=== PATIENT | male | born 1980 | race Caucasian/White ===

== ENCOUNTER 2023-12-28 10:28 | Emergency (ER) | payer BC, SELFPAY ==
[2023-12-28 10:32] VITALS: BP 123/87
[2023-12-28 10:58] LABS: % Basophils 0.3 % (0-2); % Eosinophils 0.9 % (0-6); % Immature Granulocytes 1.8 % (0-0.5); % Lymphocytes 35.6 % (20.5-51.1); % Monocytes 8.2 % (1.7-9.3); % Neutrophils 53.2 % (42.2-75.2); Absolute Eosinophils 0.1 10^3/uL (0-0.7); Absolute Immature Granulocytes 0.2 10^3/uL (0-0.05); Absolute Lymphocytes 4.6 10^3/uL (1.2-3.4); Absolute Monocytes 1.1 10^3/uL (0.1-0.6); Absolute Neutrophils 6.9 10^3/uL (1.4-6.5); Hematocrit 46.2 % (39.0-52.0); Hemoglobin 15.5 g/dL (13.0-18.0); Mean Corp Hgb Conc. 33.5 g/dL (33.0-37.0); Mean Corpuscular Volume 80.3 fL (80.0-94.0); Mean Platelet Volume 8.4 fL (7.4-10.4); Nucleated Red Blood Cells % 0 % (-); Platelet Count 256 10^3/uL (130-400); Red Blood Cell Count 5.75 10^6/uL (4.70-6.10); White Blood Cell Count 12.9 10^3/uL (4.8-10.8)
[2023-12-28 11:19] LABS: ALT (SGPT) 30 U/L (0-50); AST (SGOT) 26 U/L (17-59); Albumin 4.5 g/dl (3.5-5.0); Alkaline Phosphatase 48 U/L (38-126); Blood Urea Nitrogen 13 mg/dl (9-20); Calcium 9.5 mg/dl (8.4-10.2); Carbon Dioxide 29 mmol/L (22-30); Chloride 104 mmol/L (98-107); Glucose 84 mg/dl (70-99); Potassium 4.4 mmol/L (3.5-5.1); Sodium 140 mmol/L (135-145); Total Bilirubin 0.9 mg/dl (0.2-1.3); Total Protein 7.4 g/dl (6.3-8.2); eGFR > 60.00
[2023-12-28 11:47] VITALS: BP 118/68
[2023-12-28 11:53] VITALS: BMI 47.0
[2023-12-28 12:00] VITALS: BP 116/75
--- NOTE | 2023-12-28 12:16 | ED.GENMED ---
History of Present Illness
General
Chief Complaint: Heart Rate Problem
Source: patient and spouse
Exam Limitations: none
Time Seen by Provider: 12/28/23 11:45
Nursing documentation reviewed up to this point in time: agreed with
History of Present Illness
History of Present Illness:
43-year-old male presents emergency department due to dizziness and generalized weakness this morning. He notes his INR was 4.4 this week. He denies any chest pain or shortness of breath.
Past History
Past History
ED Past Medical History: GERD, Valvular disease (Congenital bicuspid aortic valve) and Other (Histroy of recurrent DVTs)
ED Past Surgical History: Cardiac (Aortic valvuloplasty with aortic root graft [facility] February 2013)
Social History
Tobacco: Non-smoker
Alcohol: None
Drug: None
Personal:
Living: with family
Employment: Employed
Review of Systems
Review of Systems
Allergies reviewed?: Yes
All Other Systems: Not applicable
Constitutional: Reports no symptoms
EENT: Reports no symptoms
Respiratory: Reports no symptoms; Denies trouble breathing
Cardiac: Reports palpitations; Denies chest pain
ABD/GI: Reports no symptoms
: Reports no symptoms
Musculoskeletal: Reports no symptoms
Skin: Reports no symptoms
Neurological: Reports no symptoms
Endocrine: Reports no symptoms
Hematologic/Lymphatic: Reports bruising
Psychiatric: Reports no symptoms
Phy Exam
Physical Exam
Physical Exam:
Physical Exam
General: no apparent distress, not acutely ill
Neck: supple. no meningeal signs. normal posterior pharynx
Heart: s1/s2 regular rate and rhythm, no murmur. equal radial
pulses.
HEENT: Pupils equal round reactive to light, EOMI
Lungs: no acute respiratory distress. clear bilaterally
Abdomen: normal bowel sounds. not tender. no CVAT
Neuro: alert and oriented. no focal neurological deficits cranial nerves II through XII intact
Skin: no rash, ecchymosis bruising left howell appears several days old
Psychiatric: well kept. interactive and cooperative
Extremities: no edema. no calf tenderness. negative homans. good distal pulses
Course
Orders/Labs/Results
Orders:
Orders
12/28/23 10:36
Electrocardiogram (*1) Urgent
Reason for Study: Chest Pain
EKG- Treatment ONCE
12/28/23 10:46
CMP [Comprehensive Metabolic Panel] Urgent
Complete Blood Count/With Diff Urgent
PT/INR [Prothrombin Time] Urgent
Abnormal Lab Results
12/28/23
10:46
WBC 12.9 H 10^3/uL
(4.8-10.8)
Abs Immat Gran (auto) 0.2 H 10^3/uL
(0-0.05)
Absolute Neuts (auto) 6.9 H 10^3/uL
(1.4-6.5)
Absolute Lymphs (auto) 4.6 H 10^3/uL
(1.2-3.4)
Absolute Monos (auto) 1.1 H 10^3/uL
(0.1-0.6)
Immature Gran % 1.8 H %
(0-0.5)
PT 30.9 H Sec
(11.4-14.6)
12/28/23 10:46
12/28/23 10:46
Vital Signs
Initial and Last Documented VS:
Initial Vital Signs
Temp Pulse Resp BP Pulse Ox
98.1 F 77 20 123/87 97
12/28/23 10:32 12/28/23 10:32 12/28/23 10:32 12/28/23 10:32 12/28/23 10:32
Last Documented Vital Signs
Temp Pulse Resp BP Pulse Ox
98.1 F 72 14 112/68 96
12/28/23 10:32 12/28/23 13:00 12/28/23 13:00 12/28/23 13:00 12/28/23 13:00
MDM/Problems Addressed
Differential Diagnosis Includes:
Dysrhythmia, anemia
MDM/Problems Addressed:
43-year-old male with dizziness. No signs of dysrhythmia, normal hemoglobin. Normal EKG. Stable for discharge.
Chronic conditions affecting care: Cardiomyopathy
Acute Exacerbation and/or Progression of Chronic Illness: Cardiomyopathy
*Pulse Oximetry
Patient hypoxic: no
*EKG
Interpreted by ED Provider?: Yes
EKG Intrepretation Date: 12/28/23
EKG Intrepretation Time: 10:41
Interpretation: normal
Comparison EKG: no changes
Heart Rate: 68
Rate: normal
Rhythm: sinus
[place]: normal axis
Interval: normal interval
QRS Pattern: normal QRS
Ischemia: no ischemia
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
Rate: normal
Interpretation: normal
Heart Rate: 67
Rhythm: sinus
*Critical Care Note
Total Time (30-74mins, 75-104mins- exclusive of procedures): Not Applicable
Data Reviewed
Further Testing Considered But Not Given:
ct chest, nad
Patient Management
Social determinants of health affecting care: Strong social support
Escalation/DeEscalation of care consider admission/obs:
admit not indicated
ED Attending Note
-
Portions of this chart may have been created with voice recognition software.� Occasional wrong word or��sound alike� substitutions may have occurred due to the inherent limitations of voice recognition software.
Discharge Plan
Departure
Patient Disposition: Home (Routine Discharge)
Date of Disposition: 12/28/23
Time of Disposition: 13:15
Patient with high blood pressure during this ER visit?: No
Condition: Good
Discharge Problem:
Lightheaded
Prescriptions:
No Action
aspirin 325 MG tablet
325 mg PO DAILY
lisinopril [Prinivil] 5 MG tablet
5 mg PO DAILY
colchicine [Mitigare] 0.6 MG capsule
1.2 mg PO DAILY
febuxostat [Uloric] 80 MG tablet
80 mg PO DAILY
famotidine 20 MG tablet
20 mg PO DAILY Qty: 10 0RF
prednisone 10 MG tablet
10 mg PO DAILY 12 Days 0RF
albuterol sulfate 2.5 MG/3 ML solution for nebulization
2.5 mg inhalation R Q4HPRN PRN (Reason: sob/cough) Qty: 1 0RF
hydrocodone-acetaminophen 1 TABLET tablet
1 tab PO Q4HPRN PRN (Reason: severe pain) Qty: 6 0RF
Referrals:
Kristin Friend MD [Family Provider] - Call in 1-3 days for appt
Interventions
Interventions:
*Risk Screen - Suicide Last Done: 12/28/23 13:09
*General Assessment Last Done: 12/28/23 10:33
*Neglect/Abuse Screening Last Done: 12/28/23 13:09
*ED COVID-19 Vaccine History Last Done: 12/28/23 10:33
ED- Cardiac Assessment Last Done: 12/28/23 11:50
ED- Pulmonary Assessment Last Done: 12/28/23 11:50
Discharge Date and Time
Print Language: DANISH
[2023-12-28 12:20] LABS: INR 2.98; PT 30.9 Sec (11.4-14.6)
[2023-12-28 12:30] VITALS: BP 117/75
[2023-12-28 13:00] VITALS: BP 112/68
== END 2023-12-28 13:33 | disposition home or self-care (01) ==
LOC: EMR 10:28
PROVIDERS: Emergency Medicine; EMERGENCY PHYSICIAN Emergency Medicine; FAMILY PHYSICIAN Family Medicine
DX: R42 Dizziness and giddiness (principal)
CPT/HCPCS: 99284; 80053; 85025; 85610; 93005